=== PATIENT | male | born 1945 | race Caucasian/White ===

== ENCOUNTER 2017-02-16 08:29 | Emergency (ER) | payer OTHER, MEDICARE ==
[~2017-02-16] VITALS: Ht 165.1 cm; Wt 79.8 kg
--- NOTE | 2017-02-16 08:32 | ED GI/GU/ABDOMINAL COMPLAINT ---
History of Present Illness General Chief Complaint: Abdominal Pain/Flank Pain Stated Complaint: ABD PAIN, NAUSEA Source: patient Exam Limitations: no limitations Vital Signs & Intake/Output Vital Signs & Intake/Output Vital Signs Date Time Temp Pulse Resp B/P Pulse O2 O2 Flow FiO2 Ox Delivery Rate 02/16 1337 98.0 80 20 142/85 100 Room Air 02/16 1233 97.6 92 15 151/86 96 Room Air Room Air 02/16 1028 96.0 80 18 153/78 96 Room Air 02/16 0929 Room Air Room Air 02/16 0922 97.0 84 22 162/80 96 Room Air 02/16 0838 97.1 88 18 164/90 96 Room Air Allergies Coded Allergies: No Known Allergies (02/16/17) Triage Nurses Notes Reviewed? yes Duration: better Timing: single episode today Quality/Severity: moderate Severity Numbers: 5 Location: generalized abdomen Radiation: no radiation Activities at Onset: eating HPI: PT IS A 72 Y/O MALE WITH PMH OF HTN, HLD, DM, GOUT who presents emergency room stating that yesterday in the evening patient had a salad and approximate 1 hour later had generalized abdominal uncomfortable sensation which gradually worsened throughout the evening and last night at approximate 4 AM patient had the gradual onset of nausea and dry heaves which persisted throughout the morning patient tried to drink water however he was unable tolerate this throughout the morning which patient has been complaining of waxing and waning abdominal pain. Currently he states the nausea is better and the abdominal pain has significantly improved. Patient does not drink alcohol denies any NSAID use Last bowel movement was yesterday no blood no melena noted Colonoscopy was approximately 3-4 years ago polyps noted Denies any fever chills chest pain arm and jaw pain shortness of breath cough hematuria or testicular pain (WILY WAKEFIELD) Reconcile Medications Allopurinol 300 MG TABLET 1 TAB PO DAILY GOUT (Reported) Amlodipine Besylate 5 MG TABLET 1 TAB PO DAILY HEART (Reported) Atorvastatin Calcium 20 MG TABLET 1 TAB PO DAILY CHOLESTEROL (Reported) Metformin HCl 500 MG TABLET 1 TAB PO BID DM (Reported) (BUCK CANDELARIA,HENOK) Past History Travel History Traveled to [place] past 21 day No Medical History Any Pertinent Medical History? see below for history Cardiovascular: hypertension, hyperlipidemia Musculoskeletal: gout Endocrine: diabetes Surgical History Surgical History: hernia repair-inguinal Family History Hx Contributory? No (WILY WAKEFIELD) Review of Systems Review of Systems Constitutional: Reports: no symptoms. EENTM: Reports: no symptoms. Respiratory: Reports: no symptoms. Cardiovascular: Reports: no symptoms. GI: Reports: see HPI, abdominal pain, nausea. Genitourinary: Reports: no symptoms. Musculoskeletal: Reports: no symptoms. Skin: Reports: no symptoms. Neurological/Psychological: Reports: no symptoms. Hematologic/Endocrine: Reports: no symptoms. Immunologic/Allergic: Reports: no symptoms. All Other Systems: Reviewed and Negative (WILY WAKEFIELD) Physical Exam Physical Exam General Appearance: mild distress Gastrointestinal: normal bowel sounds, soft, MILD DISTENTION GENERALIZED POINT TENDERNESS NOTED Comments: HEENT: Normal EENT exam, Neck: Supple, no lymphadenopathy, normal range of motion without pain or tenderness Back: Nontender, no CVA tenderness. Cardiovascular: Regular rate and rhythms no murmurs rubs or gallops, normal JVP Respiratory: Chest nontender. No respiratory distress.breath sounds clear to auscultation bilaterally Extremity: No edema, no calf tenderness to palpation, normal and equal pulses. Neuro: Alert oriented x3, motor sensory normal, Skin: No appreciable rash on exposed skin, skin is warm and dry. Psych: Mood and affect is normal, memory and judgment is normal. Core Measures ACS in differential dx? No Severe Sepsis Present: No Septic Shock Present: No (WILY WAKEFIELD) Progress Differential Diagnosis: AAA, AMI, appendicitis, biliary colic, bowel obstruction , colon cancer, cholecystitis, diverticulitis, epididymitis, esophageal varices, gastritis, hepatitis, hernia, hemorrhoids, ischemic bowel, inflamm bowel dis, Elana-Lizbeth tear, orchitis, pancreatitis, prostatitis, peptic ulcer, PUD/GERD, perforated viscous, pyelonephritis, SBO, testicular torsion, ureterolithiasis, urinary retention, urethritis, UTI/pyelo Plan of Care: Orders Procedure Date/time Status Add-on Test (ER Only) 02/16 0906 Active LIPASE 02/16 0848 Complete AMYLASE 02/16 0848 Complete COMPREHENSIVE METABOLIC PANEL 02/16 0847 Complete CBC WITHOUT DIFFERENTIAL 02/16 0847 Complete EKG 02/16 0835 Active Laboratory Tests 02/16/17 0848: Anion Gap 11, Estimated GFR > 60, BUN/Creatinine Ratio 23.0, Glucose 190 H, Calcium 9.2, Total Bilirubin 0.8, AST 35, ALT 64, Alkaline Phosphatase 87, Total Protein 7.0, Albumin 4.2, Globulin 2.8, Albumin/Globulin Ratio 1.5, Amylase 57, Lipase 84, CBC w Diff NO MAN DIFF REQ, RBC 5.13, MCV 87.4, MCH 29.3, RDW 14.5, MPV 8.8, Gran % 83.2 H, Lymphocytes % 12.6 L, Monocytes % 3.5, Eosinophils % 0.5, Basophils % 0.2, Absolute Granulocytes 7.5 H, Absolute Lymphocytes 1.1 L, Absolute Monocytes 0.3, Absolute Eosinophils 0, Absolute Basophils 0, PUBS MCHC 33.5 Patient declined pain medications when offered 02/16/2017 9:55:12 AM patient refused Zofran and which with IV fluids HE feels significantly improved. Patient was evaluated on multiple occasions and after IV fluids were ministered he states that he had complete resolution of symptoms. Patient had unremarkable blood work afebrile in no apparent distress. CT scan and ultrasounds did show concerns of gallbladder wall thickening however no stones were seen at this time. I discussed results with Dr. Hameed who advised patient to be safely discharged and follow up in office if symptoms continue and to return to emergency room if symptoms worsen. I stressed with patient and that if symptoms worsen to return to the emergency room immediately and they will comply. Patient was able tolerate by mouth and discharged. Discussed disposition with Dr. JANE who agrees with plan (RAYMOND HOWARD,WILY) Diagnostic Imaging: Viewed by Me: CT Scan, Ultrasound. Radiology Impression: SEE COMMENTS Initial ED EKG: normal p-waves, normal QRS complex, normal sinus rhythm, 85 bpm, nsr Comments: PATIENT: EFRAÍN PURI PRESENT AGE: 72 PATIENT ACCOUNT NO: [id number] : 46 LOCATION: [facility] ORDERING PHYSICIAN: WILY HOWARD SERVICE DATE: 02/16/17 EXAM TYPE: US - US-LIMITED ABDOMEN EXAMINATION: US ABDOMEN LIMITED CLINICAL INFORMATION: CT showing gallbladder wall thickening. Suspect cholecystitis.. COMPARISON: CT from today TECHNIQUE: Real-time imaging of the right upper quadrant abdominal viscera. FINDINGS: PANCREAS: The head and body are unremarkable. The tail is obscured by gas. LIVER: The liver demonstrates normal size and contour with heterogeneous increased echogenicity. No focal lesion or intrahepatic biliary duct dilatation. GALLBLADDER: No gallstones are seen. There is gallbladder wall thickening, with the wall measuring up to 0.5 cm. Pericholecystic fluid is present. The patient does not report focal tenderness in this area during the examination. COMMON BILE DUCT: Normal in caliber measuring 0.6 cm in diameter. RIGHT KIDNEY: There is an upper pole 0.9 cm simple cyst. No hydronephrosis. No renal calculi or solid parenchymal lesions. The kidney measures 10.4 cm in maximum dimension. FREE FLUID: None. IMPRESSION: Gallbladder wall thickening with pericholecystic fluid. No cholelithiasis. Acalculous cholecystitis is a consideration. This could be further evaluated with a nuclear medicine biliary scan. Hepatic steatosis. DICTATED BY: INDRA CANDELARIA,LILI DATE/TIME DICTATED:02/16/177 (WILY WAKEFIELD) Departure Departure Disposition: HOME OR SELF CARE Condition: Stable Clinical Impression Primary Impression: Abdominal pain Secondary Impressions: Acalculous cholecystitis Referrals: YOSEPH ZABALA,REBEKAH CASTELLON MD,YEVGENIY Cartwright (PCP/Family) Additional Instructions: As discussed begin a 24-hour clear liquid and bland diet to rest your bowels. If symptoms worsen return to emergency room. If no better on Sunday follow-up with surgeon Dr. HAMEED for further evaluation treatment. Departure Forms: Customer Survey General Discharge Information (WILY WAKEFIELD) PA/[employer] Co-Sign Statement Statement: ED Attending supervision documentation- [X] I saw and evaluated the patient. I have also reviewed all the pertinent lab results and diagnostic results. I agree with the findings and the plan of care as documented in the PA's/[employer]ER's documentation. [X] I have reviewed the ED Record and agree with the PA's/[employer]'s documentation. [] Additions or exceptions (if any) to the PAs/[employer]ER's note and plan are summarized below: [] (BUCK CANDELARIA,HENOK)
[2017-02-16 08:56] LABS: ABSOLUTE BASOPHIL COUNT 0 /CUMM (0.0-0.2); ABSOLUTE EOSINOPHIL COUNT 0 /CUMM (0.0-0.7); ABSOLUTE GRANULOCYTE CT 7.5 /CUMM (1.4-6.5); ABSOLUTE LYMPH COUNT 1.1 /CUMM (1.2-3.4); ABSOLUTE MONOCYTE COUNT 0.3 /CUMM (0.10-0.60); BASOPHIL % 0.2 % (0.0-2.0); EOSINOPHIL % 0.5 % (0-5); HEMATOCRIT 44.8 % (42-52); MEAN CORPUSCULAR HGB 29.3 PG (27.0-31.0); MEAN CORPUSCULAR HGB CONC 33.5 G/DL (33.0-37.0); MEAN CORPUSCULAR VOLUME 87.4 FL (80.0-94.0); MEAN PLATELET VOLUME 8.8 FL (7.4-10.4); PLATELET COUNT 143 /CUMM (130-400); RBC DISTRIBUTION WIDTH 14.5 % (11.5-14.5); RED BLOOD CELL CT 5.13 /CUMM (4.70-6.10)
[2017-02-16 09:08] LABS: GRANULOCYTE % 83.2 % (42.2-75.2)
[2017-02-16] MEDS ORDERED: AMLODIPINE BESYL5 M1 PO (09:23)
[2017-02-16] MEDS ORDERED: ATORVASTATIN CA20 M1 PO (09:23)
[2017-02-16] MEDS ORDERED: ALLOPURINOL300 M1 PO (09:23)
[2017-02-16] MEDS ORDERED: METFORMIN HCL500 M3 PO (09:23)
--- NOTE | 2017-02-16 11:45 | CT SCAN REPORT ---
EXAMINATION: CT ABDOMEN AND PELVIS WITH CONTRAST CLINICAL INFORMATION: Abdominal pain. Nausea and vomiting. COMPARISON: None TECHNIQUE: Multidetector volumetric imaging was performed of the abdomen and pelvis before and after the IV administration of 98 mL of Optiray 320 intravenous contrast. Sagittal and coronal reformatted images were obtained on the technologist's workstation. DLP: 415.25 mGy-cm. FINDINGS: LUNG BASES: There is bibasilar bronchiectasis with associated linear densities reflecting subsegmental atelectasis. The visualized mediastinum is unremarkable. LIVER, GALLBLADDER, AND BILIARY TREE: The liver is normal in size, shape and contour. There is patchy low-attenuation of the hepatic parenchyma reflecting underlying steatosis. A 0.4 cm low-attenuation in the hepatic segment 8 (series 2 image 15) and 0.4 cm low-attenuation in the hepatic segment 4A (series 2 image 17) are too small to characterize accurately, statistically may represent cysts or hemangiomas. There is a hyperdense lesion in the hepatic segment 2 posteriorly (series 2 image 17) measuring 0.7 cm and a second 1.6 cm hyperdense lesion in the hepatic segment 5 (series 2 image 20); this may represent hemangiomas. The gallbladder is physiologically distended. There is no evidence of radiopaque gallstones. There is suggestion of mild gallbladder wall thickening without obvious pericholecystic inflammatory changes. No biliary ductal dilatation. PANCREAS: Unremarkable. SPLEEN: Unremarkable. ADRENAL GLANDS: Unremarkable. KIDNEYS AND URETERS: The kidneys are normal in size, shape, and attenuation. Note is made of a duplicated left renal collecting system with duplication noted throughout almost the entire length of the ureters. Mild fullness of the bilateral intrarenal collecting system, left greater than right, is most likely related to bladder distention. There is a punctate nonobstructing calculus in the upper pole of the right kidney (it is 2 image 33). 2 additional punctate nonobstructing calculi are noted in the upper to mid right kidney (series 2 image 35). There are a few bilateral subcentimeter low-attenuation renal lesions which are too small to characterize accurately however statistically most likely represent cysts. A 1.2 cm hypodense lesion in the lower pole of the left kidney laterally (series 2 image 46) represents a cyst by CT Hounsfield units criteria. Mild bilateral perinephric stranding is within physiologic limits. BLADDER: Moderately distended. Evidence of bladder calculi, bladder wall thickening or bladder mass. GASTROINTESTINAL TRACT: The small and large bowel are unremarkable. The appendix is unremarkable. The stomach is partially distended however grossly unremarkable. OMENTUM, MESENTERY AND PERITONEAL CAVITY: There is no evidence of free intraperitoneal air or fluid. No inflammatory changes or nodularity is seen in the omentum and mesentery. ABDOMINAL WALL: Postsurgical changes are noted in the bilateral inguinal regions likely from prior inguinal hernia repair, recommend correlation with surgical history. No evidence of recurrent hernia. No significant abdominal wall hernia is appreciated. LYMPH NODES: No pathologically enlarged lymph nodes are seen. VASCULAR: There is mild calcific atherosclerosis of the visualized thoracic aorta and abdominal aorta as well as iliac arteries which are normal in caliber. Incidental note is made of a retroaortic left renal vein. PELVIC VISCERA: The prostate is enlarged measuring 6.3 cm in transverse dimension. Normal seminal vesicles. OSSEOUS STRUCTURES: No acute or suspicious osseous lesions. Degenerative disc disease is noted at L4-L5 with sclerotic and erosive endplate marrow changes. IMPRESSION: 1. Mild thickening of the wall of the gallbladder without obvious pericholecystic inflammatory changes or radiopaque gallstones. The findings may suggest acute cholecystitis in the appropriate clinical settings. Recommend clinical correlation and correlation with ultrasound. No biliary ductal dilatation. 2. Patchy hepatic steatosis. Two subcentimeter low-attenuation liver lesions are too small to characterize accurately however statistically may represent cysts or hemangiomas. Two hyperdense liver lesions most probably represent hemangiomas. Recommend dynamic liver MRI correlation for conclusive evaluation. 3. 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 Moderate urinary bladder distention. Mild fullness of the bilateral intrarenal collecting system is thought to be related to bladder distention rather than representing hydronephrosis. Bilateral subcentimeter low-attenuation renal lesions are too small to characterize accurately however statistically most likely represent cysts. A 1.3 cm left renal lower pole cyst. A few punctate nonobstructing right renal calculi. 4. Prostatomegaly. 5. Evidence of mild bronchiectasis at the lung bases with associated multifocal areas of subsegmental atelectasis.
--- NOTE | 2017-02-16 12:54 | ULTRASOUND REPORT ---
EXAMINATION: US ABDOMEN LIMITED CLINICAL INFORMATION: CT showing gallbladder wall thickening. Suspect cholecystitis.. COMPARISON: CT from today TECHNIQUE: Real-time imaging of the right upper quadrant abdominal viscera. FINDINGS: PANCREAS: The head and body are unremarkable. The tail is obscured by gas. LIVER: The liver demonstrates normal size and contour with heterogeneous increased echogenicity. No focal lesion or intrahepatic biliary duct dilatation. GALLBLADDER: No gallstones are seen. There is gallbladder wall thickening, with the wall measuring up to 0.5 cm. Pericholecystic fluid is present. The patient does not report focal tenderness in this area during the examination. COMMON BILE DUCT: Normal in caliber measuring 0.6 cm in diameter. RIGHT KIDNEY: There is an upper pole 0.9 cm simple cyst. No hydronephrosis. No renal calculi or solid parenchymal lesions. The kidney measures 10.4 cm in maximum dimension. FREE FLUID: None. IMPRESSION: Gallbladder wall thickening with pericholecystic fluid. No cholelithiasis. Acalculous cholecystitis is a consideration. This could be further evaluated with a nuclear medicine biliary scan. Hepatic steatosis.
[2017-02-16 13:37] VITALS: BP 142/85
== END 2017-02-16 13:56 ==
LOC: ERH 08:29
PROVIDERS: Physician Assistant
DX: K81.9 Cholecystitis, unspecified (principal)
CPT/HCPCS: 74177; 93005; 93010; J2405

== ENCOUNTER → 2017-04-13 | Day surgery (SDC) | payer OTHER, MEDICARE ==
[~2017-04-13] VITALS: Ht 165.1 cm; Wt 74.4 kg
[~2017-04-13] MED LIST: ALLOPURINOL300 M1 PO; AMLODIPINE BESYL5 M1 PO; ATORVASTATIN CA20 M1 PO; METFORMIN HCL500 M3 PO
--- NOTE | 2017-04-13 09:05 | Operative Report ---
Operative/Inv Procedure Report Surgery Date: 04/13/17 Name of Procedure: Laparoscopic cholecystectomy Pre-Operative Diagnosis: Chronic cholecystitis Post-Operative Diagnosis: Same Estimated Blood Loss: scant Surgeon/Bulldogger: BRINDA CANDELARIA,LEE ANN Davison/Kiya HOWARD Anesthesia: general endotracheal tube Drains: None Specimens: Gallbladder Operative/Procedure Note Note: After informed consent patient is brought to the operating room and laid supine. General anesthesia was obtained and her abdomen was prepped and draped. The skin above the umbilicus infiltrated with local anesthesia and a curvilinear incision made sharply. We came down through the subcutaneous tissues bluntly and grasped the fascia with Julio C's. A fasciotomy was created sharply and stay sutures placed. The peritoneum was entered sharply and a blunt Johnson port was placed. Pneumoperitoneum was achieved. 3, 5 mm ports were placed in the epigastrium and right upper quadrant after local anesthesia was instilled and under direct vision the camera. She's placed in reverse Trendelenburg and rotated towards the left. The gallbladder is identified. It was grasped at the dome and retracted towards the head. Infundibulum was then grasped. Adhesions to the undersurface were taken down with blunt and cautery dissection. There were chronic inflammatory changes around the gallbladder making the dissection a little bit more bloody. We dissected both sides the triangle Calot peritoneal tissue with cautery. The artery was medial and its normal anatomic position but coursed along the liver bed and into the gallbladder high up in the dome.. Salter Path was cleared of areolar tissue with cautery. The arteries and duct were doubly ligated with clips. Gallbladder is removed from the fossa electrocautery. It was placed in Endo Catch bag and cinched up. Right upper quadrant was and suction irrigated normal saline. Hemostasis achieved with cautery. The ports were then removed and the gallbladder delivered and passed off the field. The fascia was closed with 0 Vicryl suture. Skin incisions closed with 4-0 Vicryl. Steri-Strips and sterile dressing applied. Sponge and needle counts are correct. CC: RAVINDER CANDELARIA,YEVGENIY Cartwright
== END ==
LOC: STS 01:59
DX: K81.1 Chronic cholecystitis (principal); I10 Essential (primary) hypertension; E11.9 Type 2 diabetes mellitus without complications; Z79.84 Long term (current) use of oral hypoglycemic drugs; M10.9 Gout, unspecified
CPT/HCPCS: 36415; 88304; J0690; J1200; J2250